=== PATIENT | male | born 1985 | race Two or more races ===

== ENCOUNTER 2019-01-07 20:11 | Inpatient (IN) | payer SELFPAY ==
[~2019-01-07] VITALS: Ht 182.9 cm; Wt 78.4 kg
[2019-01-07 22:15] LABS: Basophils # (auto) 0.1 uL; Basophils % (auto) 0.4 % (0.0-2.0); Eosinophils # (auto) 0.1 uL; Eosinophils % (auto) 0.4 % (0.0-7.0); Hematocrit 39.4 % (41.0-53.0); Hemoglobin 13.2 g/dL (13.5-17.5); Lymphocytes # (auto) 2.4 uL; Lymphocytes % (auto) 13.8 % (10.0-50.0); Mean Corpuscular Hemoglobin 29.2 pg (28.0-32.0); Mean Corpuscular Hgb Conc. 33.6 g/dL (32.0-36.0); Mean Corpuscular Volume 87.1 fL (80.0-100.0); Monocytes # (auto) 1.9 uL; Monocytes % (auto) 10.9 % (0.0-12.0); Neutrophils # (auto) 13.2 uL; Neutrophils % (auto) 74.5 % (37.0-80.0); Platelet Count (auto) 379 10^3/uL (140-450); Red Blood Cells 4.52 10^6/uL (4.5-5.90); White Blood Cell 17.6 10^3/uL (4.4-10.8)
[2019-01-07 22:35] LABS: Albumin 3.3 g/dL (3.4-5.0); BUN/Creatinine Ratio 11.2; Calcium 8.5 mg/dL (8.5-10.1); Potassium 3.4 mmol/L (3.5-5.1)
[2019-01-07 22:45] LABS: Bilirubin, Total 0.5 mg/dL (0.2-1.0)
[2019-01-07 22:55] LABS: Uric Acid 4.6 mg/dL (3.5-7.2)
[2019-01-08] MEDS ORDERED: ACETAMINOPHEN/CODEINE#3 (300/30mg) TAB PO ONE (00:30)
[2019-01-08] MEDS ORDERED: CLINDAMYCIN 600MG IV 50 ML IV ONE (01:00)
[2019-01-08] MEDS ORDERED: cefTRIAXone 1GM/50ML D5W 50 ML IV ONE (01:00)
[2019-01-08] MEDS ORDERED: ONDANSETRON HCL 4 MG/2 ML VIAL IV PRN (03:00)
[2019-01-08] MEDS ORDERED: POTASSIUM CHL 20 Meq TABLET PO ONE (03:00)
[2019-01-08] MEDS ORDERED: TEMAZEPAM 15 MG CAP PO PRN (03:00)
[2019-01-08] MEDS ORDERED: MORPHINE SULF INJ 2 MG/ML SYRINGE 1ML IV PRN (03:00)
[2019-01-08] MEDS ORDERED: HYDROcodone-ACET 5/325MG TAB PO PRN (03:00)
[2019-01-08] MEDS ORDERED: ACETAMINOPHEN 500 MG TAB PO PRN (03:00)
[2019-01-08 05:15] LABS: Basophils # (auto) 0.1 uL; Basophils % (auto) 0.5 % (0.0-2.0); Eosinophils # (auto) 0.1 uL; Eosinophils % (auto) 0.6 % (0.0-7.0); Hematocrit 37.2 % (41.0-53.0); Hemoglobin 12.2 g/dL (13.5-17.5); Lymphocytes # (auto) 2.5 uL; Lymphocytes % (auto) 13.2 % (10.0-50.0); Mean Corpuscular Hemoglobin 29.1 pg (28.0-32.0); Mean Corpuscular Hgb Conc. 32.9 g/dL (32.0-36.0); Mean Corpuscular Volume 88.3 fL (80.0-100.0); Monocytes # (auto) 2.5 uL; Monocytes % (auto) 13.2 % (0.0-12.0); Neutrophils # (auto) 13.9 uL; Neutrophils % (auto) 72.5 % (37.0-80.0); Platelet Count (auto) 330 10^3/uL (140-450); Red Blood Cells 4.21 10^6/uL (4.5-5.90); Red Cell Distribution Width 13.3 % (11.8-14.3); White Blood Cell 19.2 10^3/uL (4.4-10.8)
[2019-01-08 05:45] LABS: Calcium 8.3 mg/dL (8.5-10.1); Potassium 3.7 mmol/L (3.5-5.1)
[2019-01-08 05:46] LABS: BUN/Creatinine Ratio 11.2
[2019-01-08 08:00] VITALS: BP 110/65
--- NOTE | 2019-01-08 08:30 | NUR ---
RECEIVED FROM ER The patient is received alert and oriented times four with no SOB or s/s of distress at this time. The patient's bilateral lower extremities have no pitting edema and redness. The patient is resting in bed in the lowest position with call light within reach, will continue to monitor and POC.
[2019-01-08 08:59] VITALS: BP 110/65
[2019-01-08] MEDS: PANTOPRAZOLE 40 MG TAB PO SCH (10:51)
--- NOTE | 2019-01-08 12:30 | NUR ---
Rounds Patient awake and alert. No S/S of distress/SOB or pain. Will continue to monitor changes q1hr and PRN.
[2019-01-08 12:37] LABS: Urine Bacteria NONE SEEN /hpf (None Seen); Urine Blood Negative /uL (Negative); Urine Mucus FEW (None Seen); Urine Specific Gravity 1.019 (1.001-1.035); Urine WBC 8 /hpf (0 - 3)
[2019-01-08 13:39] VITALS: BP 92/54
[2019-01-08] MEDS: CLINDAMYCIN 600MG IV 50 ML IV SCH ×2 (14:00→22:31)
[2019-01-08 14:34] LABS: Protein, Urine 80.6 mg/dL (0.0-11.9)
--- NOTE | 2019-01-08 16:30 | NUR ---
Rounds Patient awake and alert. No S/S of distress/SOB or pain. Will continue to monitor changes q1hr and PRN.
[2019-01-08 16:47] VITALS: BP 94/57
--- NOTE | 2019-01-08 19:35 | NUR ---
Opening Note Received report from day shift RN. Patient is awake, alert and oriented x4. No signs or symptoms of distress noted at this time. Patient is on room air. Patient denies pain at this time. Reviewed plan of care with patient, patient verbalized understanding. Bed in low and locked position, call light within reach. Patient instructed to call for assistance. Will continue to monitor Q1 hour and PRN.
[2019-01-08 20:00] VITALS: BP 101/61
[2019-01-08 21:29] VITALS: BP 101/61
--- NOTE | 2019-01-08 22:10 | NUR ---
100.0 temp per NA patient resting in bed comfortably, blankets removed. will reassess temp.
[2019-01-08] MEDS: NAPROXEN 500 MG TAB PO SCH (22:31)
--- NOTE | 2019-01-08 22:45 | NUR ---
TEMP REASSESSMENT 98.8 TEMP. PATIENT RESTING IN BED COMFORTABLY, DENIES ANY PAIN OR DISCOMFORT AT THIS TIME. CALL LIGHT WITHIN REACH.
--- NOTE | 2019-01-09 03:52 | NUR ---
ROUNDS PATIENT RESTING IN BED COMFORTABLY, WITH EVEN AND UNLABORED RESPIRATIONS AT 18BPM. NO S/S OF PAIN OR DISTRESS NOTED. BED AT ITS LOWEST POSITION AND CALL LIGHT WITHIN REACH.
[2019-01-09 05:22] VITALS: BP 89/56
[2019-01-09] MEDS: CLINDAMYCIN 600MG IV 50 ML IV SCH ×2 (05:43→14:00)
[2019-01-09 05:46] LABS: Basophils # (auto) 0 uL; Basophils % (auto) 0.4 % (0.0-2.0); Eosinophils # (auto) 0.2 uL; Eosinophils % (auto) 2.5 % (0.0-7.0); Hematocrit 35.9 % (41.0-53.0); Lymphocytes # (auto) 2.1 uL; Lymphocytes % (auto) 23.3 % (10.0-50.0); Mean Corpuscular Hemoglobin 29.7 pg (28.0-32.0); Mean Corpuscular Hgb Conc. 33.6 g/dL (32.0-36.0); Mean Corpuscular Volume 88.4 fL (80.0-100.0); Monocytes # (auto) 1.4 uL; Monocytes % (auto) 15.6 % (0.0-12.0); Neutrophils # (auto) 5.2 uL; Neutrophils % (auto) 58.2 % (37.0-80.0); Nucleated Red Blood Cells % 0.1 %; Platelet Count (auto) 288 10^3/uL (140-450); Red Blood Cells 4.06 10^6/uL (4.5-5.90); Red Cell Distribution Width 13.7 % (11.8-14.3); White Blood Cell 8.9 10^3/uL (4.4-10.8)
[2019-01-09 06:00] LABS: BUN/Creatinine Ratio 14.3
--- NOTE | 2019-01-09 08:20 | NUR ---
Received referral to see pt about no insurance. Sterling spoke with pt. Sterling will assist in securing [facility].
[2019-01-09 08:57] VITALS: BP 93/61
[2019-01-09] MEDS: PANTOPRAZOLE 40 MG TAB PO SCH (09:33)
[2019-01-09] MEDS: NAPROXEN 500 MG TAB PO SCH ×2 (09:33→21:33)
[2019-01-09] MEDS: cefTRIAXone 1GM/50ML D5W 50 ML IV SCH (09:34)
--- NOTE | 2019-01-09 10:50 | NUR ---
PT AWARE OF NEED TO COLLECT STOOL SPECIMEN, VERBALIZED UNDERSTANDING.
[2019-01-09] MEDS ORDERED: fentaNYL CITRATE 100 MCG/2 ML VL ONE (13:30)
--- NOTE | 2019-01-09 14:04 | NUR ---
ULTRASOUND: Patient brought down to ultrasound for aspiration of right ankle. Consent obtained for 'ultrasound guided fluid aspiration of right ankle'. Patient premedicated with Fentanyl 50mcg IV. Vital signs preprocedure BP 109/73, HR 94, RR 18, O2sats 95%. Patient tolerated well. Specimen obtained and sent to lab for culture, gram stain and crystal. SBAR given to CARI Rhodes. Vitals signs post procedure BP 105/72 HR 104 RR 20 O2 sats 99%. Patient transported via wheelchair back to room.
--- NOTE | 2019-01-09 15:06 | NUR ---
patient wasn't in the room for 1300 vitals
[2019-01-09 17:00] VITALS: BP 96/54
--- NOTE | 2019-01-09 18:23 | NUR ---
PT OFF FLOOR FOR ARTHROSCOPY, RETURNED TO FLOOR WITHOUT INCIDENT. VSS. AT THIS TIME AWAKE, ALERT, DENIES PAIN.
--- NOTE | 2019-01-09 19:20 | NUR ---
Opening Shift Note Assumed care of patient, awake and alert. No S/S of distress/SOB or pain. Instructed on POC and to call for assist PRN. Bed in lowest locked position, call light within reach, side rails up x2. Will continue to monitor for changes Q1hr and PRN.
[2019-01-09 21:30] VITALS: BP 94/52
[2019-01-10 05:00] VITALS: BP 95/60
[2019-01-10 08:53] VITALS: BP 100/54
[2019-01-10] MEDS: PANTOPRAZOLE 40 MG TAB PO SCH (09:10)
[2019-01-10] MEDS: cefTRIAXone 1GM/50ML D5W 50 ML IV SCH (09:10)
[2019-01-10] MEDS: NAPROXEN 500 MG TAB PO SCH ×2 (09:10→21:37)
[2019-01-10 12:59] VITALS: BP 127/70
[2019-01-10 16:58] VITALS: BP 93/58
--- NOTE | 2019-01-10 18:04 | NUR ---
PT DENIES PAIN. AMBULATING IN ROOM, ENCOURAGED TO AMBULATE IN HALLWAYS.
[2019-01-10 21:43] VITALS: BP 98/59
[2019-01-11 05:00] VITALS: BP 100/57
--- NOTE | 2019-01-11 07:25 | NUR ---
Opening Shift Note Assumed care of patient, asleep, arouses to name and alert. No S/S of distress/SOB or pain. Bed in lowest and locked position with side rails up x2 and call light within reach. Instructed on POC and to call for assist PRN, will continue to monitor for changes Q1hr and PRN.
[2019-01-11 08:50] VITALS: BP 98/50
[2019-01-11] MEDS: PANTOPRAZOLE 40 MG TAB PO SCH (09:24)
[2019-01-11] MEDS: cefTRIAXone 1GM/50ML D5W 50 ML IV SCH (09:24)
[2019-01-11] MEDS: NAPROXEN 500 MG TAB PO SCH (09:24)
[2019-01-11 11:37] LABS: Hepatitis B Core Total AB Negative; Hepatitis B Surface Antigen Negative (Negative)
--- NOTE | 2019-01-11 11:46 | NUR ---
Nutrition Assessment Notes Please see attached link for complete assessment Est. Needs BW (78 kg): 0882-5742 kcal (25-30 kcal/kg), 78-93 g protein (1.0-1.2 g/kg). Will continue to monitor pertinent labs and reassess nutrient need prn Addendum: 01/11/19 at [address] Amended: Links added.
[2019-01-11] MEDS ORDERED: NAP500T PO (12:30)
[2019-01-11] MEDS ORDERED: CEPH-37 PO (12:30)
[2019-01-11 13:00] VITALS: BP 101/64
--- NOTE | 2019-01-11 14:15 | NUR ---
Discharge instructions given as ordered. Encourage to follow up with PMD as instructed. All questions and concerns addressed. Patient verbalized understanding. Medication reconciliation form completed and copy given to patient. No home medications held in Pharmacy. No needed vaccines. IV removed with catheter intact, pressure dressing applied.
--- NOTE | 2019-01-11 14:18 | NUR ---
Patient refused wheelchair and walk off unit with steady gait and with all personal belongings. No distress noted at time of departure.
== END 2019-01-11 14:18 | disposition home or self-care (01) | DRG 872 ==
LOC: ER 20:15 → OVERFLOW 20:16 → WEST WING 01-08 08:24
PROVIDERS: ADMIT Nurse Practitioner Family; ATTEND Internal Medicine Nephrology
PROC: 0S9F3ZZ Drainage of Right Ankle Joint, Percutaneous Approach (ICD-10-PCS; principal; 2019-01-09)
DX: A41.9 Sepsis, unspecified organism (principal); L03.115 Cellulitis of right lower limb; L03.116 Cellulitis of left lower limb; D64.9 Anemia, unspecified; M19.90 Unspecified osteoarthritis, unspecified site; R73.03 Prediabetes; R80.9 Proteinuria, unspecified; M65.872 Other synovitis and tenosynovitis, left ankle and foot; M65.871 Other synovitis and tenosynovitis, right ankle and foot
CPT/HCPCS: 36415; 71045; 76881; 80048; 81001; 82570; 82784; 83516; 84156; 85025; 85652; 86160; 86200; 86225; 86235; 86431; 86703; 86704; 86803; 87040; 87045; 87205; 87340; 87899; 93970; G0378; J0696; J3490

== ENCOUNTER 2020-08-14 11:13 | Emergency (ER) | payer MEDICAID, OTHER ==
[~2020-08-14] VITALS: Ht 182.9 cm; Wt 80.7 kg
[~2020-08-14 11:13] MED LIST: CEPH-37 PO; NAP500T PO
[2020-08-14 12:00] VITALS: BP 94/63
[2020-08-14] MEDS ORDERED: methylPREDNISolone SOD SUCC 125 MG/2 ML VL IM ONE (12:30)
[2020-08-14] MEDS ORDERED: cefTRIAXone SOD 1,000 MG VL IM ONE (12:30)
== END 2020-08-14 12:57 | disposition home or self-care (01) ==
LOC: ER 11:13
DX: J03.00 Acute streptococcal tonsillitis, unspecified (principal)
CPT/HCPCS: 71046; 96372; 99284; J0696; J2930

== ENCOUNTER 2024-02-07 11:11 | Inpatient (IN) | payer OTHER ==
[~2024-02-07] VITALS: Ht 182.9 cm; Wt 88.0 kg
[2024-02-07] MEDS: CLINDAMYCIN 600MG IV 50 ML IV ONE (11:30)
[2024-02-07 12:22] LABS: Basophils # (auto) 0 10 ^3/uL (0-0.2); Basophils % (auto) 0.7 % (0.0-2.0); Eosinophils # (auto) 0.1 10 ^3/uL (0-0.8); Eosinophils % (auto) 1.5 % (0.0-7.0); Hematocrit 36.4 % (41.0-53.0); Hemoglobin 12.4 g/dL (13.5-17.5); Lymphocytes # (auto) 2.4 10 ^3/uL (0.4-5.4); Lymphocytes % (auto) 42.3 % (10.0-50.0); Mean Corpuscular Hemoglobin 28.2 pg (28.0-32.0); Mean Corpuscular Hgb Conc. 34.1 g/dL (32.0-36.0); Mean Corpuscular Volume 82.9 fL (80.0-100.0); Monocytes # (auto) 0.5 10 ^3/uL (0-1.3); Monocytes % (auto) 8.5 % (0.0-12.0); Neutrophils # (auto) 2.7 10 ^3/uL (1.6-8.6); Nucleated Red Blood Cells % 0.2 %; Platelet Count (auto) 207 10^3/uL (140-450); Red Cell Distribution Width 14.4 % (11.8-14.3); White Blood Cell 5.7 10^3/uL (4.4-10.8)
[2024-02-07 12:55] LABS: Urine Bacteria None Seen /hpf (None Seen)
[2024-02-07 13:01] LABS: Alanine Aminotransferase 68 U/L (7-40); Albumin 4.2 g/dL (3.2-4.8); Alkaline Phosphatase 116 U/L (46-116); Anion Gap 7 (5-15); Aspartate Aminotransferase 33 U/L (13-40); BUN/Creatinine Ratio 11.1 (10.0-20.0); Bilirubin, Total 0.3 mg/dL (0.2-1.0); Blood Urea Nitrogen 11 mg/dL (9-23); Calcium 9.7 mg/dL (8.7-10.4); Carbon Dioxide 27 mmol/L (20-30); Chloride 103 mmol/L (98-107); Glucose 86 mg/dL (74-106); Potassium 4.3 mmol/L (3.5-5.1); Sodium 137 mmol/L (136-145); Total Protein 8.4 g/dL (5.7-8.2)
[2024-02-07 13:11] LABS: Urine Blood Negative /uL (Negative); Urine Clarity Clear (Clear); Urine Color Yellow (Yellow); Urine Mucus FEW (None Seen); Urine Protein, UAD TRACE (Negative); Urine Specific Gravity 1.022 (1.001-1.035); Urine Urobilinogen Normal (Negative); Urine WBC 2 /hpf (0 - 3)
[2024-02-07 13:20] LABS: Amphetamine Screen, Urine Pos (NEGATIVE); Barbiturate Scree,Urine Neg (NEGATIVE); Benzodiazephine Screen, Urine Neg (NEGATIVE); Cocaine Screen, Urine Neg (NEGATIVE); Opiate Scree,Urine Neg (NEGATIVE)
[2024-02-07 13:21] LABS: Cannabinoid Screen, Urine Neg (NEGATIVE); Phencyclidine Screen, Urine Neg (NEGATIVE)
[2024-02-07] MEDS: ONDANSETRON HCL 4 MG/2 ML VIAL IV ONE (16:23)
[2024-02-07] MEDS: DexAMETHasone SOD PHOS 10MG/1ML VIAL INJ IV ONE (16:24)
[2024-02-07] MEDS: MORPHINE SULFATE INJ 2 MG/ml SYRG IV ONE (16:25)
[2024-02-07] MEDS: VANCOMYCIN 1GM/200ML 200 ML IV ONE (16:32)
[2024-02-07 16:37] VITALS: BP 124/85; PULSE 97; RESP 18; TEMP 98; O2SAT 100
[2024-02-07] MEDS ORDERED: MORPHINE SULFATE INJ 2 MG/ml SYRG IV PRN ×2 (17:00→19:15)
[2024-02-07] MEDS ORDERED: HYDROcodone-ACET 5/325MG TAB PO PRN (17:00)
[2024-02-07] MEDS: SODIUM CHLORIDE 0.9% 1,000 ML IV SCH (17:00)
[2024-02-07] MEDS ORDERED: VANCOMYCIN PER PHARMACY 0 MG IV SCH (17:00)
[2024-02-07] MEDS ORDERED: ONDANSETRON HCL 4 MG/2 ML VIAL IV PRN (17:00)
[2024-02-07] MEDS ORDERED: DOCUSATE SOD 100 MG CAP PO PRN (17:00)
[2024-02-07] MEDS ORDERED: ACETAMINOPHEN 325 MG TAB PO PRN (17:00)
[2024-02-07] MEDS: diphenhdrAMINE HCL 50 MG/1 ML VL IV ONE (17:18)
[2024-02-07] MEDS: CLINDAMYCIN 600MG IV 50 ML IV SCH (17:38)
[2024-02-07] MEDS ORDERED: NITROGLYCERIN 0.4 MG SL TAB SL PRN (19:15)
[2024-02-08] MEDS ORDERED: VANCOMYCIN 1GM/200ML 200 ML IV SCH
[2024-02-08] MEDS ORDERED: DexAMETHasone SOD PHOS 10MG/1ML VIAL INJ IV SCH (10:00)
== END 2024-02-07 20:24 | disposition left against medical advice (07) | DRG 383 ==
LOC: ER 11:11 → OVERFLOW 19:08
PROVIDERS: ADMIT Nurse Practitioner Family; ATTEND Nurse Practitioner Family
DX: L03.312 Cellulitis of back [any part except buttock and flank] (principal); Z53.29 Procedure and treatment not carried out because of patient's decision for other reasons; Z79.899 Other long term (current) drug therapy; Z88.1 Allergy status to other antibiotic agents; Z88.0 Allergy status to penicillin
CPT/HCPCS: 36415; 71045; 80053; 80307; 81001; 83605; 84484; 85025; 86703; 87040; 87389; 93005; G0378; J1100; J2405; J3490